=== PATIENT | female | born 1990 | race African-American/Black ===

== ENCOUNTER 2018-05-30 11:39 | Emergency (ER) | payer OTHER ==
[~2018-05-30] VITALS: Ht 160 cm; Wt 80.0 kg
[~2018-05-30 11:39] MED LIST: INSU100V30 SQ; LANTUS SQ; LEVO75TA57; LISI-222
[2018-05-30] MEDS ORDERED: HYDROcodone/acetaminophen 5mg/325mg tablet PO ONE (12:15)
[2018-05-30] MEDS ORDERED: iohexol 300mg/ml 100ml inj. ONE (12:21)
[2018-05-30 12:43] VITALS: BP 127/84
[2018-05-30] MEDS ORDERED: HYDR-3965 PO (14:13)
== END 2018-05-30 14:46 | disposition home or self-care (01) ==
LOC: ER 11:39
DX: S20.219A Contusion of unspecified front wall of thorax, initial encounter (principal); S83.91XA Sprain of unspecified site of right knee, initial encounter; M25.519 Pain in unspecified shoulder; M54.5 Low back pain; I10 Essential (primary) hypertension; E11.9 Type 2 diabetes mellitus without complications; E03.9 Hypothyroidism, unspecified; M79.602 Pain in left arm; M25.532 Pain in left wrist; Z79.4 Long term (current) use of insulin; V89.2XXA Person injured in unspecified motor-vehicle accident, traffic, initial encounter; Y93.89 Activity, other specified; Y99.8 Other external cause status; Y92.410 Unspecified street and highway as the place of occurrence of the external cause
CPT/HCPCS: 71260; 73564; 74177; 93005; 99284; Q9967

== ENCOUNTER 2020-08-30 21:50 | Emergency (ER) | payer OTHER ==
[~2020-08-30] VITALS: Ht 160 cm; Wt 0.6 kg
[2020-08-30 21:59] VITALS: BP 126/83
== END 2020-08-30 23:59 | disposition left against medical advice (07) ==
LOC: ER 21:51
DX: M79.602 Pain in left arm (principal); Z53.21 Procedure and treatment not carried out due to patient leaving prior to being seen by health care provider

== ENCOUNTER 2023-06-29 09:41 | Emergency (ER) | payer MEDICAID, OTHER ==
[~2023-06-29] VITALS: Ht 167.6 cm; Wt 70.0 kg
[~2023-06-29 09:41] MED LIST changes: -INSU100V30 SQ; +INSU100V64 SQ
[2023-06-29 09:48] VITALS: TEMP 98.7
[2023-06-29 10:54] LABS: MEAN PLATELET VOLUME 8.9 FL (7.4-10.4); PLATELET COUNT 494 X10'3 (140-440); WHITE BLOOD COUNT 12.7 X10'3 (4.5-11.0)
[2023-06-29 11:10] LABS: HEMATOCRIT 23.9 % (35.0-45.0); HEMOGLOBIN 7.2 g/dl (12.0-16.0); MEAN CORPUSCULAR HEMOGLOBIN 17.9 PG (27.0-31.0); MEAN CORPUSCULAR VOLUME 59.6 FL (78-98); RED BLOOD COUNT 4.01 X10'6 (4.20-5.60); RED CELL DISTRIBUTION WIDTH 20.9 % (11.5-14.5)
[2023-06-29 11:31] LABS: ALANINE AMINOTRANSFERASE 70 U/L (12-78); ALBUMIN 2.7 G/DL (3.4-5.0); ALBUMIN/GLOBULIN RATIO 0.6 (1.1-1.5); ALKALINE PHOSPHATASE 181 IU/L (46-116); ANION GAP 11 (8-16); ASPARTATE AMINO TRANSFERASE 81 U/L (10-37); BILIRUBIN,TOTAL 0.4 MG/DL (0.1-1.0); CALCIUM 8.2 MG/DL (8.5-10.1); CHLORIDE 101 MMOL/L (99-107); CREATININE 0.85 MG/DL (0.40-0.90); GLUCOSE 396 MG/DL (70-104); LIPASE 32 U/L (16-77); SODIUM 136 MMOL/L (135-145); TOTAL CARBON DIOXIDE 24.4 MMOL/L (24-32); TOTAL PROTEIN 7.5 G/DL (6.4-8.2); eCRCL 89 ML/MIN; eGFR > 90 ML/MIN
[2023-06-29 11:36] LABS: BLOOD UREA NITROGEN 6 MG/DL (7-18); BUN/CREATININE RATIO 7.1 (10.0-20.0); POTASSIUM 3.9 MMOL/L (3.5-5.1)
[2023-06-29 11:52] LABS: ANISOCYTOSIS 3+; HYPOCHROMASIA 3+; MICROCYTOSIS 3+; PLATELET ESTIMATE INCREASED; TOTAL CELLS COUNTED 100
[2023-06-29 11:53] LABS: TARGET CELLS FEW; TEAR DROP CELLS FEW
[2023-06-29 11:54] LABS: POLYCHROMASIA FEW; ROULEAUX 1+
[2023-06-29 12:55] LABS: BILIRUBIN,URINE NEGATIVE (Neg); CLARITY,URINE CLEAR (Clear); COLOR,URINE STRAW (Yellow); GLUCOSE, URINE >=1000 mg/dl (Neg); KETONES,URINE 15 mg/dl (Neg); LEUKOCYTE ESTERASE ,URINE NEGATIVE (Neg); NITRITES, URINE NEGATIVE (Neg); OCCULT BLOOD,URINE NEGATIVE (Neg); PH,URINE 5.5 (4.8-8.0); PROTEIN,URINE NEGATIVE (Neg)
[2023-06-29] MEDS ORDERED: morphine 4 MG/ML inj SYRINge IV PRN (12:55)
[2023-06-29 13:09] LABS: UA COLLECTION TYPE CLN CATCH MIDSTREAM
[2023-06-29 13:11] LABS: BACTERIA,URINE 1+ /HPF (Neg); RBC,URINE 0-2 /HPF (0-2); SQUAMOUS EPITHELIAL CELL,UR MODERATE /LPF (FEW); WBC,URINE 0-4 /HPF (0-4)
[2023-06-29] MEDS: Insulin Reg/NS 100units/100mL 100 ML IV PRN (13:50)
[2023-06-29] MEDS: normal saline 1000ML IV soln IVB ONE (13:51)
[2023-06-29 14:16] LABS: URINE HCG NEGATIVE (NEG)
[2023-06-29] MEDS ORDERED: iohexol 300mg/ml 100ml inj. ONE (14:40)
[2023-06-29] MEDS: MESSAGE TO NURSING PO NR (16:08)
[2023-06-29] MEDS ORDERED: potassium Cl 20 mEq SR tablet PO STA (16:27)
[2023-06-29] MEDS: potassium Cl 20 mEq SR tablet PO STA (16:49)
[2023-06-29] MEDS: acetaminophen 325mg tablet PO ONE (16:50)
[2023-06-29] MEDS ORDERED: AZIT250T29 PO (16:53)
[2023-06-29] MEDS ORDERED: AMOX-580 PO (16:53)
[2023-06-29 17:02] VITALS: BP 112/66; PULSE 96; RESP 16; O2SAT 98
== END 2023-06-29 17:31 | disposition home or self-care (01) ==
LOC: ER 09:42
DX: D64.9 Anemia, unspecified (principal); E11.9 Type 2 diabetes mellitus without complications; J18.9 Pneumonia, unspecified organism; R10.12 Left upper quadrant pain; N92.0 Excessive and frequent menstruation with regular cycle; I10 Essential (primary) hypertension; E07.9 Disorder of thyroid, unspecified; Z79.899 Other long term (current) drug therapy
CPT/HCPCS: 36415; 74177; 80053; 81001; 81025; 82948; 83690; 84484; 85007; 85025; 96365; 96366; 99285; J1815; J3490; J7030; Q9967

== ENCOUNTER 2024-08-22 17:56 | Emergency (ER) | payer MEDICAID ==
[~2024-08-22] VITALS: Ht 160 cm; Wt 63.7 kg
[2024-08-22 18:09] VITALS: TEMP 98.5
[2024-08-22] MEDS: erythromycin ophthalmic ointment 1gm tube EACHEYE ONE (19:10)
[2024-08-22] MEDS ORDERED: ERYT1OIN6 EACHEYE (19:12)
[2024-08-22 19:31] VITALS: BP 126/80; PULSE 70; RESP 18; O2SAT 99
== END 2024-08-22 19:33 | disposition home or self-care (01) ==
LOC: ER 17:57
DX: H10.89 Other conjunctivitis (principal); E11.9 Type 2 diabetes mellitus without complications; E03.9 Hypothyroidism, unspecified; I10 Essential (primary) hypertension; D64.9 Anemia, unspecified; Z79.4 Long term (current) use of insulin
CPT/HCPCS: 99283

== ENCOUNTER 2024-08-25 10:13 | Emergency (ER) | payer MEDICAID ==
[~2024-08-25] VITALS: Ht 170.2 cm; Wt 66.5 kg
[~2024-08-25 10:13] MED LIST changes: +ERYT1OIN6 EACHEYE
[2024-08-25 11:01] VITALS: BP 108/78; PULSE 89; RESP 16; TEMP 97.6; O2SAT 97
== END 2024-08-25 11:05 | disposition home or self-care (01) ==
LOC: ER 10:14
DX: J32.9 Chronic sinusitis, unspecified (principal); E11.9 Type 2 diabetes mellitus without complications; E03.9 Hypothyroidism, unspecified; I10 Essential (primary) hypertension; D64.9 Anemia, unspecified; Z79.4 Long term (current) use of insulin
CPT/HCPCS: 99282

== ENCOUNTER 2025-03-23 13:20 | Emergency (ER) | payer MEDICAID ==
[~2025-03-23] VITALS: Ht 160 cm; Wt 63.5 kg
[~2025-03-23 13:20] MED LIST changes: -ERYT1OIN6 EACHEYE
--- NOTE | 2025-03-23 14:12 | RADIOLOGY REPORT ---
DI CHEST,TWO VIEWS, HISTORY: r/o PNA COMPARISON: None None TECHNICAL DATA: 2 view of the chest was obtained. FINDINGS: Lines and tubes: None Cardiomediastinal silhouette: normal Pulmonary vasculature: normal Lung expansion: normal Lung airspace: normal Lung interstitium: normal Pleura: normal Pneumothorax: no Bones: Unremarkable Other: no IMPRESSION: No acute intrathoracic abnormality.
[2025-03-23 15:16] LABS: MEAN PLATELET VOLUME 8.7 FL (7.4-10.4); RED CELL DISTRIBUTION WIDTH 16.0 % (11.5-14.5)
[2025-03-23 15:39] LABS: CREATININE 0.62 MG/DL (0.40-0.90); PRO BRAIN NATRIURETIC PEPTIDE 147 PG/ML (0-125); TOTAL CARBON DIOXIDE 26.9 MMOL/L (24-32); eCRCL 106 ML/MIN; eGFR > 90 ML/MIN
--- NOTE | 2025-03-23 17:13 | Physician Documentation ---
History of Present Illness ~ Chief Complaint: Cold, cough & congestion Stated Complaint: COUGH Time Seen by MD: 14:52 Primary Medical Doctor: [facility] Patient is seen today with complaints of sore throat and runny nose started about six days ago and a couple of days ago she developed a cough. Patient denies any chest pain currently or shortness of breath or abdominal pain or na usea, vomiting, diarrhea. Patient states she came in today because well coughing yesterday or last night she was having chest pain while coughing. She states he needs a note for work in his no other concern or complaint at this time. Medication Reconciliation Allergies: Coded Allergies: No Known Allergies (Unverified , 08/22/24) Scheduled Insulin Glargine,Hum.rec.anlog* (Lantus*), 22 UNITS SQ HS, (Reported) Insulin Regular, Human* (Humulin R 3 Ml *), 0 SQ SLIDING SCALE, (Reported) Miscellaneous Medications Levothyroxine Sodium* (Levoxyl*), (Reported) Lisinopril* (Lisinopril*), (Reported) Past Medical History Past Medical History: Hypertension, Anemia, Diabetes, Hypothyroidism Past Surgical History: no surgical history Alcohol Use: None Drug Use: none Lives In: Home Occupation: employed Review of Systems Constitutional: Denies: chills, fever, weakness Eyes: Denies: pain, blurred vision ENT: Denies: ear pain, nose pain, throat pain, mouth pain Respiratory: Denies: cough, shortness of breath Cardiovascular: Denies: chest pain, palpitations Gastrointestinal: Denies: abdominal pain, nausea, vomiting Genitourinary: Denies: burning, dysuria Female Genitalia: Denies: vaginal discharge, pelvic pain Neurological: Denies: headache, dizziness Musculoskeletal: Denies: pain, swelling Integumentary: Denies: rash, lesions Allergic/Immunologic: Denies: hives, itching Hematologic/Lymphatic: Denies: no symptoms reported Psychiatric: Denies: depression, anxiety Physical Exam Vital Signs: Temperature: 98.8, Source: Oral, Heart Rate: 106, Respiratory Rate: 16, BP: 122/76, Pulse Oximetry: 98, Weight: 63.500 Oxygen Flow Rate: 0 Physical Exam General: Awake and Alert, no acute distress. HEENT: Conjunctiva pink, Sclera clear, Mucus Membranes moist. Neck: Supple without masses and tenderness. Resp: Unlabored. Lungs clear to auscultation bilaterally. Heart: Regular Rate and rhythm, normal S1 and S2 without murmur, rub or gallop. Abdomen: Soft and non tender no organomegaly Extremities: No cyanosis,clubbing or edema. Skin: Warm and Dry. Progress Results/Orders Results/Orders Vital Signs 03/23/25 13:28 Temp 98.8 Pulse 106 Resp 16 B/P (MAP) 122/76 Pulse Ox 98 O2 Flow Rate 0 Laboratory Tests Test 03/23/25 15:04 White Blood Count 11.3 H Red Blood Count 4.34 Hemoglobin 10.8 L Hematocrit 33.1 L Mean Corpuscular Volume 76.3 L Mean Corpuscular Hemoglobin 25.0 L Mean Corpuscular Hemoglobin Concent 32.7 L Red Cell Distribution Width 16.0 H Platelet Count 556 H Mean Platelet Volume 8.7 Neutrophils (%) (Auto) 80.2 H Lymphocytes (%) (Auto) 12.0 L Monocytes (%) (Auto) 6.2 Eosinophils (%) (Auto) 0.7 Basophils (%) (Auto) 0.9 Neutrophils # (Auto) 9.1 H Lymphocytes # (Auto) 1.4 Monocytes # (Auto) 0.7 Eosinophils # (Auto) 0.1 Basophils # (Auto) 0.1 CBC Comment Sodium Level 138 Potassium Level 3.7 Chloride Level 104 Carbon Dioxide Level 26.9 Anion Gap 7 L Blood Urea Nitrogen 12 Creatinine 0.62 Estimated GFR/1.73 m2 > 90 BUN/Creatinine Ratio 19.4 Glucose Level 141 H Lactic Acid Level 1.4 Calcium Level 9.0 Pro-B-Type Natriuretic Peptide 147 H Albumin 3.8 Chemistry Comments EKG/XRAY/CT/US/VASC/MRI Chest X-Ray : Additional Comments DIAGNOSTIC RADIOLOGY Patient: REI SABA Medical Record: [id number] [facility] 1990, Age: 35 Sex: Female Location: ER Patient Status: REG ER Service Date/Time: 03/23/251403 Ordering Physician: ERNIE ABBOTT MD Exam: CHEST,TWO VIEWS DI CHEST,TWO VIEWS, HISTORY: r/o PNA COMPARISON: None None TECHNICAL DATA: 2 view of the chest was obtained. FINDINGS: Lines and tubes: None Cardiomediastinal silhouette: normal Pulmonary vasculature: normal Lung expansion: normal Lung airspace: normal Lung interstitium: normal Pleura: normal Pneumothorax: no Bones: Unremarkable Other: no IMPRESSION: No acute intrathoracic abnormality. Electronically Signed by:PAULO BRADLEY MD Date & Time: 03/23/251409 Dictated by: PAULO BRADLEY MD Dictation date and time: 03/23/251401 Primary Care Provider: NO PRIMARY CARE PROVIDER cc: ERNIE ABBOTT MD ~ Medical Decision Making Additional information obtaine: N/A Findings Patient is seen today with complaints of sore throat and runny nose started about six days ago and a couple of days ago she developed a cough. Patient denies any chest pain currently or shortness of breath or abdominal pain or nausea, vomiting, diarrhea. Patient states she came in today because well coug prashanth yesterday or last night she was having chest pain while coughing. She states he needs a note for work in his no other concern or complaint at this time. Patient was given note for work to be off for a few days. Patient will increase rest and fluids and will take Tylenol and ibuprofen as needed for symptomatic relief. Patient will follow up with primary care in 3-5 days if no better as needed sooner. Return to ED with any worsening, concerning or changing symptoms Differential Dx:Considerations: Include: Influenza, Otitis media, Pharyngitis- Viral, Pneumonia, Pnuemonitis, URI Departure Disposition: 01 HOME / SELF CARE / HOMELESS Impression: Primary Impression: Viral URI with cough Condition: Stable Discharge Instructions: Upper Respiratory Infection, Adult Additional Instructions: Patient was given note for work to be off for a few days. Patient will increase rest and fluids and will take Tylenol and ibuprofen as needed for symptomatic relief. Patient will follow up with primary care in 3-5 days if no better as needed sooner. Return to ED with any worsening, concerning or changing symptoms Departure Forms: Excuse form Work or School Excused From: Work Excuse beginning now through the following date: Mar 25, 2025 Referrals: NO PRIMARY CARE PROVIDER (PCP) Signature Scribe Signature: No scribe Attestation: No scribe MARY العلي Mar 23, 2025 17:13
[2025-03-23 17:28] VITALS: BP 120/66; PULSE 68; RESP 16; TEMP 98.6; O2SAT 99
== END 2025-03-23 17:29 | disposition home or self-care (01) ==
LOC: ER 13:20
DX: J06.9 Acute upper respiratory infection, unspecified (principal); R05.9 Cough, unspecified; I10 Essential (primary) hypertension; E03.9 Hypothyroidism, unspecified; E11.9 Type 2 diabetes mellitus without complications; D64.9 Anemia, unspecified; Z79.4 Long term (current) use of insulin
CPT/HCPCS: 36415; 71046; 80048; 83605; 83880; 85025; 87040; 99284